=== PATIENT | male | born 1980 | race Two or more races ===

== ENCOUNTER 2021-03-23 10:16 | Emergency (ER) | payer OTHER ==
[~2021-03-23] VITALS: Ht 167.6 cm; Wt 95.3 kg
[2021-03-23] MEDS ORDERED: TUSSIN DM SYRU118 ML PO (13:50)
== END 2021-03-23 14:34 | disposition home or self-care (01) ==
LOC: ER 10:16
DX: J06.9 Acute upper respiratory infection, unspecified (principal)

== ENCOUNTER 2021-07-20 06:57 | Emergency (ER) | payer OTHER ==
[~2021-07-20] VITALS: Ht 167.6 cm; Wt 86.2 kg
[~2021-07-20 06:57] MED LIST: TUSSIN DM SYRU118 ML PO
== END 2021-07-20 10:58 | disposition home or self-care (01) ==
LOC: ER 06:57
DX: B34.9 Viral infection, unspecified (principal); Z20.822 Contact with and (suspected) exposure to COVID-19

== ENCOUNTER 2021-08-28 10:30 | Emergency (ER) | payer OTHER ==
[~2021-08-28] VITALS: Ht 167.6 cm; Wt 99.8 kg
== END 2021-08-28 15:29 | disposition home or self-care (01) ==
LOC: ER 10:30
DX: B34.9 Viral infection, unspecified (principal); E03.9 Hypothyroidism, unspecified; F17.210 Nicotine dependence, cigarettes, uncomplicated; Z20.822 Contact with and (suspected) exposure to COVID-19